=== PATIENT | female | born 1995 | race Caucasian/White ===

== ENCOUNTER 2023-12-18 14:48 | Emergency (ER) | payer BC, MEDICAID ==
[2023-12-18 15:31] LABS: BASOPHILS ABSOLUTE AUTO 0.1 K/mm3 (0.0-0.2); BASOPHILS PERCENT AUTO 0.3 % (0.0-1.0); EOSINOPHILS ABSOLUTE AUTO 0.1 K/mm3 (0.0-0.4); EOSINOPHILS PERCENT AUTO 0.3 % (0.0-6.0); HEMOGLOBIN 14.6 gm/dl (12.0-16.0); IMMATURE GRAN ABSOLUTE AUTO 0.09 K/mm3 (0.00-0.05); IMMATURE GRAN PERCENT AUTO 0.4 % (0.0-0.4); LYMPHOCYTES PERCENT AUTO 8.1 % (24.0-44.0); MEAN CORPUSCULAR HEMOGLOBIN 32.9 pg (28.0-32.0); MEAN CORPUSCULAR HGB CONC 33.2 g/dl (32.0-36.0); MEAN CORPUSCULAR VOLUME 99.1 fl (83.0-99.0); MEAN PLATELET VOLUME 11.2 fl (9.4-12.3); MONOCYTES PERCENT AUTO 4.3 % (0.0-8.0); NEUTROPHILS ABSOLUTE AUTO 20.8 K/mm3 (1.8-7.7); NEUTROPHILS PERCENT AUTO 86.6 % (41.0-71.0); PLATELET COUNT,PLT 259 K/mm3 (150-400); RED BLOOD CELL COUNT 4.44 M/mm3 (4.10-5.30); WHITE BLOOD CELL COUNT,WBC 23.99 K/mm3 (3.9-11.3)
[2023-12-18] MEDS: Sodium Chloride 0.9% 1,000 ML IV SCH ×2 (15:33→16:17)
[2023-12-18] MEDS: Ondansetron 4 MG/2 ML SDV IVPUSH ONE (15:34)
[2023-12-18 15:56] LABS: A/G RATIO 1.2 (1-2); ALBUMIN 4.8 g/dl (3.4-5.0); ANION GAP 37.8 (5-15); BILIRUBIN TOTAL 0.5 mg/dL (0.2-1.0); CALCIUM 8.7 mg/dL (8.5-10.1); CREATININE 0.8 mg/dL (0.55-1.02); EST CRCL DRUG DOSING (CG) 76.08 mL/min; ETHANOL BLOOD MEDICAL 0.09 gm% (0.00); POTASSIUM,K 3.8 mEq/L (3.5-5.1); PROTEIN TOTAL,TP 8.8 g/dl (6.4-8.2)
[2023-12-18] MEDS: diphenhydrAMINE 50 MG/ML SDV IVPUSH ONE (16:04)
[2023-12-18] MEDS: Metoclopramide 10 MG/2 ML SDV IVPUSH ONE (16:04)
== END 2023-12-18 19:23 | disposition home or self-care (01) ==
LOC: JD.ED 14:48
DX: F10.10 Alcohol abuse, uncomplicated (principal); R11.2 Nausea with vomiting, unspecified; F17.210 Nicotine dependence, cigarettes, uncomplicated; Z79.899 Other long term (current) drug therapy
CPT/HCPCS: 36415; 80053; 80307; 85025; 96361; 96374; 96375; 99284; J1200; J2405; J2765; J7030